=== PATIENT | female | born 1995 | race Caucasian/White ===

== ENCOUNTER 2018-03-01 16:00 | Emergency (ER) | payer BC ==
[~2018-03-01] VITALS: Ht 165.1 cm; Wt 60.0 kg
[~2018-03-01 16:00] MED LIST: AUGMENTIN500 MG OR; NO HOME MEDS; ZPAK OR
[2018-03-01] MEDS ORDERED: BIRTH CONTROL (16:12)
[2018-03-01] MEDS ORDERED: TRINESSA LO PO (16:18)
[2018-03-01 17:04] VITALS: BP 118/62
== END 2018-03-01 17:04 | disposition home or self-care (01) | DRG 153 ==
LOC: ED 16:00
DX: J06.9 Acute upper respiratory infection, unspecified (principal)